=== PATIENT | female | born 1950 | race Caucasian/White ===

== ENCOUNTER 2023-10-14 06:12 | Observation (INO) ==
[2023-10-14] MEDS ORDERED: ROPIVACAINE 5 MG/ML 30 ML BTL (0.5%) ONE ×2 (07:09→07:24)
[2023-10-14] MEDS ORDERED: Tranexamic Acid 1 GM/100ML BAG 2,000 MG/200 ML BAG IV ONE (07:10)
[2023-10-14] MEDS ORDERED: ceFAZolin 2 GM PREMIX 2 GM/50 ML BAG ONE (07:10)
[2023-10-14] MEDS ORDERED: Famotidine IV 10 MG/ML 2 ml VIAL (20 mg) ONE (07:10)
[2023-10-14] MEDS ORDERED: Propofol 10 MG/ML 20 ML BTL ONE ×3 (07:13→10:57)
[2023-10-14] MEDS ORDERED: KETAMINE HCL 10 MG/ML 20 ml VIAL (200 MG) ONE (07:15)
[2023-10-14] MEDS ORDERED: Lidocaine 2% PF 5 ML VIAL ONE (07:15)
[2023-10-14 07:23] LABS: Rapid COVID-19 Molecular Undetected (Undetected)
[2023-10-14] MEDS ORDERED: Midazolam 5 mg/5 ml VIAL 1 mg/ml 5 ml VIAL (5 mg) ONE (07:23)
[2023-10-14] MEDS ORDERED: fentaNYL 100 mcg/2 ml 50 MCG/ML VIAL ONE ×3 (07:23→12:04)
[2023-10-14] MEDS: Famotidine IV 10 MG/ML 2 ml VIAL (20 mg) IV ONE (07:33)
[2023-10-14] MEDS: Lactated Ringers 1000 ml BAG 1,000 ML IV SCH ×2 (07:33→13:49)
[2023-10-14] MEDS: Buffered Lidocaine 1% SYRIN 1 ml INTRADERM ONE (07:33)
[2023-10-14] MEDS ORDERED: Levalbuterol 0.63MG/3ML NEB UNIT OF USE INH ONE (08:02)
[2023-10-14] MEDS: Levalbuterol 0.63MG/3ML NEB UNIT OF USE INH ONE (08:04)
[2023-10-14] MEDS ORDERED: Ondansetron 4 mg VIAL 2 MG/ML 2 ml VIAL ONE (08:56)
[2023-10-14] MEDS ORDERED: HYDROmorphone 1 MG/1 ML SYRINGE IV PRN (09:42)
[2023-10-14] MEDS ORDERED: fentaNYL 100 mcg/2 ml 50 MCG/ML VIAL IV PRN (09:42)
[2023-10-14] MEDS ORDERED: Naloxone 0.4 mg VIAL 0.4 mg/ml 1 ml VIAL IV PRN (09:42)
[2023-10-14] MEDS ORDERED: Levalbuterol 0.63MG/3ML NEB UNIT OF USE INH PRN (09:42)
[2023-10-14] MEDS ORDERED: Magnesium Hydroxide LIQ 30 ML UDC PO PRN (11:41)
[2023-10-14] MEDS ORDERED: Lactulose 30 ml UDC PO PRN (11:41)
[2023-10-14] MEDS ORDERED: Ondansetron 4 mg VIAL 2 MG/ML 2 ml VIAL IV PRN (11:41)
[2023-10-14] MEDS ORDERED: Ondansetron ODT 4 mg TAB 4 MG TAB PO PRN (11:41)
[2023-10-14] MEDS: Morphine 2 MG/ML SYRINGE IV PRN (17:40)
[2023-10-14] MEDS: ceFAZolin 1 GM ADVAN 1 GM in NS 0.9% 50 ML 50 ML IVPB SCH (17:42)
[2023-10-14] MEDS: Magnesium Hydroxide LIQ 30 ML UDC PO SCH (20:53)
[2023-10-15 07:01] LABS: Hematocrit 36.7 % (35-45); Mean Platelet Volume 6.9 fL (7.5-11.2); Platelet Count 215 10^3/uL (150-450)
[2023-10-15 07:22] LABS: Calcium 8.2 mg/dL (8.6-10.3); Creatinine, Serum 0.82 mg/dL (0.51-0.95); Potassium 4.5 mmol/L (3.5-5.0); eGFR CKD-EPI 76.4 (>60)
[2023-10-15] MEDS: Vitamin THERAPEUTIC TAB PO SCH (08:08)
[2023-10-15] MEDS: CMC:Ketoconazole 2 % CREAM (NF) 30 GM TUBE TOPICAL SCH (08:14)
[2023-10-15 09:34] VITALS: BP 144/56
== END 2023-10-15 12:10 | disposition home or self-care (01) ==
LOC: SSU 06:12 → OR 06:12
PROVIDERS: ADMIT Orthopaedic Surgery Adult Reconstructive Orthopaedic Surgery; ATTEND Orthopaedic Surgery Adult Reconstructive Orthopaedic Surgery